=== PATIENT | male | born 1985 | race Caucasian/White ===

== ENCOUNTER 2021-04-09 14:04 | Emergency (ER) | payer OTHER, SELFPAY ==
--- NOTE | ~2021-04-09 | CT_ITS ---
EXAMINATION: CT ABDOMEN AND PELVIS WITH CONTRAST CLINICAL INFORMATION: Vomiting, abdominal pain and elevated lipase COMPARISON: None TECHNIQUE: Multidetector volumetric images were obtained from the superior aspect of the liver through the pubic symphysis following administration 85 mL of Omnipaque 350 intravenous contrast. Sagittal and coronal reformatted images were obtained on the technologist's workstation. Oral contrast: No This CT examination was performed using dose optimization techniques as appropriate, variously including the following: *Automated exposure control *Adjustment of mA and/or kV according to patient size (this includes techniques or standardized protocols for targeted exams where dose is matched to indication/reason for exam; i.e. extremities or head) *Use of iterative reconstruction technique DLP: 553 mGy-cm FINDINGS: LUNG BASES: The visualized lung bases are unremarkable. LIVER, GALLBLADDER, AND BILIARY TREE: Diffusely decreased attenuation of the hepatic parenchyma. The gallbladder is unremarkable with no evidence of radiopaque gallstones, gallbladder wall thickening, or obvious pericholecystic inflammatory changes. PANCREAS: Unremarkable. SPLEEN: Unremarkable. ADRENAL GLANDS: Unremarkable. KIDNEYS AND URETERS: The kidneys are normal in size, shape, and attenuation. No hydronephrosis, hydroureter, or calculi seen. No perinephric stranding. BLADDER: Unremarkable. GASTROINTESTINAL TRACT: The small and large bowel are unremarkable. The appendix is unremarkable. ABDOMINAL WALL: No significant hernia is appreciated. LYMPH NODES: Normal. VASCULAR: Unremarkable. PELVIC VISCERA: Unremarkable. OSSEOUS STRUCTURES: Unremarkable. CT/CT abdomen pelvis w con IMPRESSION: Diffusely decreased attenuation of the hepatic parenchyma, a nonspecific finding but most commonly on the basis of diffuse hepatocellular disease such as hepatic steatosis.
--- NOTE | ~2021-04-09 | XR_ITS ---
EXAMINATION: XR CHEST CLINICAL INFORMATION: Shortness of breath and cough COMPARISON: None TECHNIQUE: 2 views of the chest were obtained. FINDINGS: Normal-sized heart. Mild bronchial wall thickening. No lobar consolidations. No pleural effusion or pneumothorax. XR/XR chest 2V IMPRESSION: Mild bronchial wall thickening suggests small airways inflammation (e.g. asthma, bronchitis). No lobar consolidations, pleural effusion or pneumothorax.
[2021-04-09 14:20] VITALS: BP 151/81; PULSE 98; RESP 18; TEMP 36.1; O2SAT 98; BMI 31.8
--- NOTE | 2021-04-09 15:47 | ED.NAVMDI ---
HPI - Nausea/Vomiting/Diarrhea General Chief complaint: Abdominal Pain Stated complaint: fever cough back and abd pain vomiting Time Seen by Provider: 04/09/21 15:41 Source: patient Mode of arrival: ambulatory Limitations: no limitations History of Present Illness HPI Narrative: 36 y/o male presents to the ER complaining of 3 days of left sided abdominal pain, nausea, and vomiting. He reports recently traveling home from [place]. His symptoms started while he was in [place] any thought unwell for the last 2 days of his trip. He had some vomiting and upset stomach with no diarrhea or fevers. He traveled with his girlfriend who did not have any of the symptoms. He reports his left side abdominal pain has been present on and off for the last 2 months. It has been worsening over the last couple of days while he has been sick. He also reports a new onset cough and subjective fevers at home. He was tested for COVID prior coming back home from [place] and was negative. He denies any dyspnea or chest pain. He denies any urinary symptoms. MD elicited complaint: nausea, vomiting and abdominal pain Onset (ago): day(s) (2) Description of vomiting: food contents and watery Associated nausea: Yes Associated abdominal pain: Yes Location of pain: LLQ Radiation: periumbilical and epigastric Pain consistency: intermittent Severity: moderate Pain scale (0-10): 6 Quality: aching and dull Exacerbating factors: none Relieving factors: none Associated symptoms: cough, fever/chills, loss of appetite, malaise, nausea/vomiting and weakness Related Data Previous Rx's Medication Instructions Recorded azithromycin 250 mg tablet See Rx Instructions .ROUTE 04/09/21 (Zithromax Z-Gamal) .COMPLEX #6 tab ondansetron 4 mg disintegrating 4 mg PO Q8H PRN #7 tab 04/09/21 tablet Allergies Allergy/AdvReac Type Severity Reaction Status Date / Time Penicillins Allergy Anaphylaxis Verified 04/09/21 16:39 Review of Systems Review of Systems: Constitutional: + Fever, + Chills ENT/Mouth: No sore throat, No Rhinorrhea, No Swallowing Difficulty Cardiovascular: No Chest Pain, No SOB, No Orthopnea, No Edema Respiratory: + Cough, + Sputum, No Wheezing, No dyspnea Gastrointestinal: + Nausea, + Vomiting, No Diarrhea, + abdominal Pain, No Hematochezia, No Melena Genitourinary: No Dysuria, No Urinary Frequency, No Hematuria Musculoskeletal: No joint pain, No Myalgias Skin: No Skin Lesions, No rash Neuro: + Weakness, No Numbness, No Dizziness, + Headache Psych: No Anxiety/Panic, No Depression Heme/Lymph: No Bruising, No Lymphadenopathy Endocrine: No Polyuria, No Polydipsia Gastrointestinal: Gastrointestinal: Reports nausea PMFSH Social History Social History Advance Directives: No Advance Directives Information Provided: No Physical Exam Vital Signs: Vital Signs: Last Vital Signs Temp 97 F 04/09/21 14:20 Pulse 98 04/09/21 14:20 Resp 18 04/09/21 14:20 BP 151/81 H 04/09/21 14:20 Pulse Ox 98 04/09/21 14:20 Body Mass Index 31.8 Appearance: Alert. Oriented X3. No acute distress. Nontoxic appearing Eyes: Pupils equal, round and reactive to light. ENT: Pharynx normal. Neck: Normal inspection. Neck supple. CVS: Normal heart rate and rhythm. Pulses normal. Respiratory: No respiratory distress. Breath sounds normal. Abdomen: Soft with mild left lower quadrant pain to deep palpation. No rebound or guarding. Normal +BS x4 Skin: Skin warm and dry. Normal skin color. Normal skin turgor. No rashes. Extremities: No lower extremity edema. Neuro: Oriented X 3. No motor deficit. No sensory deficit. Course Course Course Narrative: 36-year-old male with no significant medical history presents to the ER with nausea, vomiting and abdominal pain for the last 2 3 days after he traveled home from [place]. He also reports chronic abdominal pain for the last 2 months in the left side that radiates up into the epigastric area and periumbilical area peer, comes and goes. He is nontoxic appearing with a benign abdominal exam. Will get basic lab workup, UA, COVID test, chest x-ray. Reevaluation(s) Reevaluation #1: Chest x-ray shows findings consistent with possible asthma or bronchitis. He has no respiratory distress lungs are clear. Lab workup shows mild elevation of ALT and alk-phos but normal bilirubins. Lipase is mildly elevated so will get CT scan to look for pancreatitis. He reports social alcohol use. He is feeling better with IV fluids and Zofran. No vomiting while in the ER. Reevaluation #2: CT scan only showing fatty liver. No pancreatic abnormalities. No diverticulitis. At this time he is stable for discharge home with planned follow-up with his primary care doctor and will refer to GI for further evaluation of his ongoing left-sided abdominal pain. He agrees with plan. Will treat for acute bronchitis given his cough and chest x-ray findings. Will also provide p.r.n. Zofran for his nausea and vomiting. Suspect this will improve with dietary modifications and hydration. May have to do with exposure to something in [place]. He has no bloody diarrhea or concern for bacterial infection. Okay for discharge home. MDM - Nausea/Vomiting/Diarrhea Lab Data Result diagrams: 04/09/21 16:10 04/09/21 16:10 Labs: Lab Results 04/09/21 04/09/21 04/09/21 Range/Units 16:10 16:10 16:10 WBC 6.4 (4.8-10.8) X10*3/uL RBC 4.63 (4.60-5.80) X10*6/uL Hgb 14.2 (14.0-18.0) g/dl Hct 42.3 (42.0-52.0) % MCV 91.4 (80.0-98.0) fL MCH 30.7 (27.0-33.0) pg MCHC 33.6 (31.0-36.0) g/dl RDW 13.4 (11.0-16.0) % Plt Count 183 (160-400) X10*3/uL MPV 10.6 (9.4-12.4) fL Immature Gran % (Auto) 0.3 (0.0-0.4) % Neut % (Auto) 55.4 (45-73) % Lymph % (Auto) 29.3 (20-40) % [place] % (Auto) 12.9 H (2-11) % Eos % (Auto) 1.6 (0-4) % Baso % (Auto) 0.5 (0-2) % Lymph # (Auto) 1.9 (1.2-4.9) X10*3/uL [place] # (Auto) 0.8 (0.1-1.2) X10*3/uL Eos # (Auto) 0.1 (0.0-0.4) X10*3/uL Baso # (Auto) 0.0 (0.0-0.2) X10*3/uL Abs Immat Gran (auto) 0.02 (0.00-0.03) X10*3/uL Absolute Neuts (auto) 3.6 (2.0-8.3) x10*3/uL Absolute Nucleated RBC 0.000 (0.0-0.012) X10*3/uL Nucleated RBC % (auto) 0.0 (0.0-0.2) /100WBC Sodium 140 (135-145) mmol/L Potassium 3.9 (3.3-5.1) mmol/L Chloride 107 (96-108) mmol/L Carbon Dioxide 24 (22-29) mmol/L Anion Gap 13 (12-20) BUN 9 (9-16) mg/dL Creatinine 0.73 (0.5-1.4) mg/dL Estim Creat Clear Calc 134.7 Estimated GFR > 60 Random Glucose 88 (60-115) mg/dL Calcium 9.0 (8.4-10.2) mg/dL Magnesium 2.0 (1.6-2.6) mg/dL Total Bilirubin 0.4 (0.0-1.0) mg/dL Direct Bilirubin 0.2 (0.0-0.5) mg/dL AST 73 H (5-37) U/L ALT 130 H (0-40) U/L Alkaline Phosphatase 76 (39-117) U/L Total Protein 6.9 (6.5-8.0) g/dL Albumin 4.3 (3.5-5.0) g/dL Lipase 115 H (8-78) U/L Urine Color Urine Appearance Urine pH (5.0-8.0) Ur Specific Collins (1.005-1.025) Urine Protein (NEG-TRACE) MG/DL Urine Glucose (UA) (NEG) MG/DL Urine Ketones (NEG) MG/DL Urine Blood (NEG) Urine Nitrite (NEG) Ur Leukocyte Esterase (NEG) COVID-19 (LINDA) Negative (Negative) COVID-19 Clin Com See Note Monoscreen (Negative) 04/09/21 04/09/21 Range/Units 16:10 18:36 WBC (4.8-10.8) X10*3/uL RBC (4.60-5.80) X10*6/uL Hgb (14.0-18.0) g/dl Hct (42.0-52.0) % MCV (80.0-98.0) fL MCH (27.0-33.0) pg MCHC (31.0-36.0) g/dl RDW (11.0-16.0) % Plt Count (160-400) X10*3/uL MPV (9.4-12.4) fL Immature Gran % (Auto) (0.0-0.4) % Neut % (Auto) (45-73) % Lymph % (Auto) (20-40) % [place] % (Auto) (2-11) % Eos % (Auto) (0-4) % Baso % (Auto) (0-2) % Lymph # (Auto) (1.2-4.9) X10*3/uL [place] # (Auto) (0.1-1.2) X10*3/uL Eos # (Auto) (0.0-0.4) X10*3/uL Baso # (Auto) (0.0-0.2) X10*3/uL Abs Immat Gran (auto) (0.00-0.03) X10*3/uL Absolute Neuts (auto) (2.0-8.3) x10*3/uL Absolute Nucleated RBC (0.0-0.012) X10*3/uL Nucleated RBC % (auto) (0.0-0.2) /100WBC Sodium (135-145) mmol/L Potassium (3.3-5.1) mmol/L Chloride (96-108) mmol/L Carbon Dioxide (22-29) mmol/L Anion Gap (12-20) BUN (9-16) mg/dL Creatinine (0.5-1.4) mg/dL Estim Creat Clear Calc Estimated GFR Random Glucose (60-115) mg/dL Calcium (8.4-10.2) mg/dL Magnesium (1.6-2.6) mg/dL Total Bilirubin (0.0-1.0) mg/dL Direct Bilirubin (0.0-0.5) mg/dL AST (5-37) U/L ALT (0-40) U/L Alkaline Phosphatase (39-117) U/L Total Protein (6.5-8.0) g/dL Albumin (3.5-5.0) g/dL Lipase (8-78) U/L Urine Color YELLOW Urine Appearance CLEAR Urine pH 6.5 (5.0-8.0) Ur Specific Collins <= 1.005 (1.005-1.025) Urine Protein NEG (NEG-TRACE) MG/DL Urine Glucose (UA) NEG (NEG) MG/DL Urine Ketones NEG (NEG) MG/DL Urine Blood NEG (NEG) Urine Nitrite NEG (NEG) Ur Leukocyte Esterase NEG (NEG) COVID-19 (LINDA) (Negative) COVID-19 Clin Com Monoscreen Negative (Negative) Discharge Plan Discharge Clinical Impression: Bronchitis Abdominal pain Qualifiers: Abdominal location: left lower quadrant Qualified Code(s): R10.32 - Left lower quadrant pain Patient Disposition: Home, Self-Care Instructions: Acute Bronchitis (ED), Abdominal Pain (ED) Additional Instructions: Your lab workup was unremarkable. Your CT scan showed a fatty liver. Your chest x-ray showed possible bronchitis. Take the prescribed antibiotic as directed for this. Take cold/flu medications as needed for your symptoms. Stick to a bland diet while you are not feeling well. Recommend following up with GI for further evaluation. Recommend following up with your doctor this week. If you develop new or worsening symptoms call 911 or come back to the ER for further evaluation. Prescriptions: New ondansetron 4 mg tablet,disintegrating 4 mg PO Q8H PRN (Reason: nausea and vomiting) Qty: 7 RF: 0 azithromycin [Zithromax Z-Gamal] 250 mg tablet See Rx Instructions .ROUTE .COMPLEX Qty: 6 RF: 0 Referrals: Paolo Alcala [Physician] - 1 week (abdominal pain x2 months, fatty liver) Fredrick Garay MD [Primary Care Provider] - 2 days Stand Alone Forms: Work/School Release
[2021-04-09 16:15] LABS: MANUAL DIFF FLAG NO
[2021-04-09 16:16] LABS: Basophils Percent Auto 0.5 % (0-2); Eosinophils Absolute Auto 0.1 X10*3/uL (0.0-0.4); Eosinophils Percent Auto 1.6 % (0-4); Hematocrit 42.3 % (42.0-52.0); Hemoglobin 14.2 g/dl (14.0-18.0); Imm Gran Abs Auto 0.02 X10*3/uL (0.00-0.03); Imm Gran Pct Auto 0.3 % (0.0-0.4); Lymphocytes Absolute Auto 1.9 X10*3/uL (1.2-4.9); Lymphocytes Percent Auto 29.3 % (20-40); Mean Corpuscular HGB Conc 33.6 g/dl (31.0-36.0); Mean Corpuscular Hemoglobin 30.7 pg (27.0-33.0); Mean Corpuscular Volume 91.4 fL (80.0-98.0); Mean Platelet Volume 10.6 fL (9.4-12.4); Monocytes Absolute Auto 0.8 X10*3/uL (0.1-1.2); Monocytes Percent Auto 12.9 % (2-11); Neutrophils Absolute Auto 3.6 x10*3/uL (2.0-8.3); Neutrophils Percent Auto 55.4 % (45-73); Platelet Count 183 X10*3/uL (160-400); Red Blood Count 4.63 X10*6/uL (4.60-5.80); Red Cell Distribution Width 13.4 % (11.0-16.0); White Blood Count 6.4 X10*3/uL (4.8-10.8)
[2021-04-09 16:30] LABS: COVID-19 Test Negative (Negative)
[2021-04-09 16:31] LABS: Monotest Negative (Negative)
[2021-04-09] MEDS: 0.9 % Sodium Chloride 1,000 ML 999 ML IVCONT (16:38)
[2021-04-09] MEDS: ondansetron HCL 4 MG/2 ML VIAL IVPUSH (16:38)
[2021-04-09 16:40] LABS: Alanine Aminotransferase 130 U/L (0-40); Albumin Level 4.3 g/dL (3.5-5.0); Alkaline Phosphatase 76 U/L (39-117); Anion Gap 13 (12-20); Aspartate Amino Transferase 73 U/L (5-37); Bilirubin Direct 0.2 mg/dL (0.0-0.5); Bilirubin Total 0.4 mg/dL (0.0-1.0); Blood Urea Nitrogen 9 mg/dL (9-16); Carbon Dioxide 24 mmol/L (22-29); Chloride 107 mmol/L (96-108); Creatinine Clr Calc Pharmacy 134.7; Estimated Glomerular Filt Rate > 60; Glucose Random 88 mg/dL (60-115); Lipase 115 U/L (8-78); Potassium 3.9 mmol/L (3.3-5.1); Sodium 140 mmol/L (135-145); Total Protein 6.9 g/dL (6.5-8.0)
[2021-04-09] MEDS: iohexoL 350 MG/ML 100 ML INFUS..BTL IV (17:36)
[2021-04-09 18:43] LABS: Appearance Urine CLEAR; Color Urine YELLOW; Glucose Urine UA NEG (NEG); Leukocyte Esterase Urine NEG (NEG); Nitrite Urine NEG (NEG); PH 6.5 (5.0-8.0); Specific Gravity - Urine <= 1.005 (1.005-1.025); Urine Blood NEG (NEG); Urine Ketones NEG (NEG); Urine Protein NEG (NEG-TRACE)
== END 2021-04-09 19:25 | disposition home or self-care (01) ==
PROVIDERS: Physician Assistant; Emergency Provider Emergency Medicine
DX: R10.32 Left lower quadrant pain (principal); R11.2 Nausea with vomiting, unspecified; J40 Bronchitis, not specified as acute or chronic; Z20.822 Contact with and (suspected) exposure to COVID-19
CPT/HCPCS: 36415; 71046; 74177; 80048; 80076; 81003; 83690; 83735; 85025; 86308; 87635; 96361; 96374; 99283; 99284; J2405; Q9967